=== PATIENT | male | born 1950 | race Caucasian/White ===

== ENCOUNTER → 2017-09-04 08:37 | Outpatient (CLI) | payer OTHER, SELFPAY ==
[2017-09-04 09:34] LABS: Add Manual Diff / Slide Review NO; Basophils Percent Auto 0.2 % (0-2); Eosinophils Percent Auto 4.1 % (2-4); Hematocrit 47.8 % (41-53); Hemoglobin 16.7 g/dL (13.5-17.5); Lymphocytes Percent Auto 15.6 % (25-40); Mean Corpuscular HGB Conc 34.9 % (30-36); Mean Corpuscular Hemoglobin 33.2 PG (26-34); Mean Corpuscular Volume 95.1 fL (80-100); Monocytes Percent Auto 9.1 % (3-14); Neutrophils Absolute Auto 4500 /uL (3000-5900); Platelet Count 234 X10^3/uL (150-400); Red Blood Cell Count 5.03 X10^6/uL (4.5-5.9); Red Cell Distribution Width 12.6 % (11.6-14.8); White Blood Cell Count 6.3 X10^3/uL (4.5-11.0)
[2017-09-04 09:45] LABS: Alanine Aminotransferase 54 IU/L (21-72); Albumin 4.4 g/dL (3.5-5.0); Albumin Globulin Ratio 1.6 (1.0-2.8); Alkaline Phosphatase 57 U/L (38-126); Aspartate Aminotransferase 43 IU/L (17-59); BUN Creatinine Ratio 21.1 (6-22); Bilirubin Total 0.7 mg/dL (0.2-1.3); Blood Urea Nitrogen 19 mg/dL (9-20); Calcium 9.8 mg/dL (8.4-10.2); Carbon Dioxide 28 mmol/L (22-32); Chloride 101 mmol/L (98-107); Estimated Glomerular Filt Rate > 60.0 mL/min (>60); Globulin 2.8 g/dL (1.7-4.1); Glucose 167 mg/dL (80-110); HEMOLYSIS < 15 (0-50); Lipase 152 U/L (23-300); Sodium 143 mmol/L (137-145); Total Protein 7.2 g/dL (6.3-8.2)
== END ==
PROVIDERS: PCP Family Medicine; Visit Provider Physician Assistant
DX: R11.2 Nausea with vomiting, unspecified (principal)
CPT/HCPCS: 36415; 80053; 83690; 85025

== ENCOUNTER 2017-09-11 13:12 | Day surgery (SDC) | payer OTHER, SELFPAY ==
--- NOTE | 2017-09-11 | PATH_ITS ---
[facility] Accession Number: [id number] . 01 Material submitted: . ANTRAL . 01 Clinical history: . A: FOR H. PYLORI . 02 Diagnosis: Antrum, Biopsies: Gastric antral mucosa with mild chronic gastritis. Negative for Helicobacter organisms by immunohistochemistry. Negative for intestinal metaplasia, dysplasia or malignancy. [facility]/09/15/2017 . 02 Electronically signed: . Steven Irwin MD, PhD, Pathologist NPI- [id number] . 01 Gross description: . Received in one formalin-filled container, labeled with the patient's name, labeled antral, are three fragments of roche, soft tissue which range in size from 0.1 x 0.1 x 0.1 cm to 0.3 x 0.2 x 0.2 cm. All fragments are totally submitted in one cassette. ([id number]) /R . 02 Microscopic: . An immunohistochemical stain is performed to evaluate for Helicobacter organisms and is negative. A control stain shows appropriate reactivity. . * This test was developed and its performance characteristics determined by [facility]. It has not been cleared or approved by the U.S. Food and Drug Administration. The FDA has determined that such clearance or approval is not necessary. This test is used for clinical purposes. It should not be regarded as investigational or for research. . 02 Pathologist provided ICD-10: K29.70 . 02 CPT . 979984, C72371 Performed at: 01 [facility] [address] [place] [address], [place], [place] [id number] MD Rebel Otoole MD Phone: [phone] Performed at: 02 [facility] [place] [address] [place], [place] [id number] MD Lawrence Dawson MD Phone: [phone]
[2017-09-11 13:30] VITALS: BP 130/85; PULSE 74; RESP 16; TEMP 36.8; O2SAT 98; BMI 29.4
--- NOTE | 2017-09-11 13:36 | PM.HP.1 ---
History of Present Illness Date Patient Seen: 09/11/17 Time Patient Seen: 13:36 Chief complaint: egd [id number] Narrative: Patient presented with dysphagia. Plan EGD with possible dilatation. Patient History Surgical History Status post knee surgery Status post tonsillectomy and adenoidectomy Family & Social History Family History: Reviewed 09/11/17 by Francisco Velasco MD Meds Home Medications Medication Instructions Recorded Confirmed Type allopurinol 1 tab PO QDAY #30 tab 05/20/17 09/11/17 History aspirin 1 tab PO QDAY #30 tab 05/20/17 09/11/17 History liraglutide [Victoza 2-Ian] 1.8 mg SQ QDAY #10 applic 05/20/17 09/11/17 History naproxen sodium [Aleve] 400 mg PO QDAY #30 tab 05/20/17 09/04/17 History pioglitazone [Actos] 1 tab PO QDAY #30 tab 05/20/17 09/11/17 History thyroid (pork) [Ralston Thyroid] 1 tab PO QDAY #90 tab 07/02/17 09/11/17 Rx vardenafil [Levitra] 5 mg PO Q DAY PRN PRN 09/11/17 History Allergies Allergy/AdvReac Type Severity Reaction Status Date / Time atorvastatin [From LIPITOR] AdvReac Mild muscle pain Verified 09/04/17 08:15 Review of Systems Review of Systems Patient was initially seen and examined in the office on July 30, 2017. That history and physical examination document has not changed since that time. All systems reviewed & are unremarkable except as noted in HPI and below Exam Narrative Exam Narrative: Well-nourished well-developed male in no acute distress. Alert oriented x3. Neck supple Chest clear to auscultation Abdomen soft, nondistended, nontender Extremities show no clubbing or cyanosis Again, examination has not changed since his evaluation of July 30, 2017. Assessment & Plan (1) Dysphagia: Current visit: Yes Status: Acute Plan: Assessment/Plan Narrative: 66-year-old male with dysphagia and longstanding reflux disease. Plan EGD with possible dilatation. Please see the history and physical examination dated July 30, 2017 for further details. Consent was placed on the chart. Proceed today as scheduled.
[2017-09-11] MEDS: SODIUM CHLORIDE 0.9% 1,000 ML 200 ML IV (13:39)
--- NOTE | 2017-09-11 13:39 | P.HP_ITS ---
History of Present Illness Date Patient Seen: 09/11/17 Time Patient Seen: 13:36 Chief complaint: egd [id number] Narrative: Patient presented with dysphagia. Plan EGD with possible dilatation. Patient History Surgical History Status post knee surgery Status post tonsillectomy and adenoidectomy Family & Social History Family History: Reviewed 09/11/17 by Francisco Velasco MD Meds Home Medications Medication Instructions Recorded Confirmed Type allopurinol 1 tab PO QDAY #30 tab 05/20/17 09/11/17 History aspirin 1 tab PO QDAY #30 tab 05/20/17 09/11/17 History liraglutide [Victoza 2-Ian] 1.8 mg SQ QDAY #10 applic 05/20/17 09/11/17 History naproxen sodium [Aleve] 400 mg PO QDAY #30 tab 05/20/17 09/04/17 History pioglitazone [Actos] 1 tab PO QDAY #30 tab 05/20/17 09/11/17 History thyroid (pork) [Sandoval Thyroid] 1 tab PO QDAY #90 tab 07/02/17 09/11/17 Rx vardenafil [Levitra] 5 mg PO Q DAY PRN PRN 09/11/17 History Allergies Allergy/AdvReac Type Severity Reaction Status Date / Time atorvastatin [From LIPITOR] AdvReac Mild muscle pain Verified 09/04/17 08:15 Review of Systems Review of Systems Patient was initially seen and examined in the office on July 30, 2017. That history and physical examination document has not changed since that time. All systems reviewed & are unremarkable except as noted in HPI and below Exam Narrative Exam Narrative: Well-nourished well-developed male in no acute distress. Alert oriented x3. Neck supple Chest clear to auscultation Abdomen soft, nondistended, nontender Extremities show no clubbing or cyanosis Again, examination has not changed since his evaluation of July 30, 2017. Assessment & Plan (1) Dysphagia: Current visit: Yes Status: Acute Plan: Assessment/Plan Narrative: 66-year-old male with dysphagia and longstanding reflux disease. Plan EGD with possible dilatation. Please see the history and physical examination dated July 30, 2017 for further details. Consent was placed on the chart. Proceed today as scheduled.
--- NOTE | 2017-09-11 13:39 | PM.PREOP ---
Pre-operative Note Interval Note Pre-op Check: History & Physical Reviewed by Physician, Exam Performed and History & Physical exam performed today H&P completed within 30 days and has changed as indicated here:: Patient seen examined again today. His history and physical exam have not changed since his previous evaluation dated July 30, 2017. Please see that H&P for further details. However, history physical examination updated again today. We will proceed with EGD and possible dilatation as planned. ASA Class (for procedural sedation): II
[2017-09-11] MEDS: TETRACAINE/BENZOCAINE/BUTAMBEN (CETACAINE) BOTTLE 1 SPRAY TOP (13:50)
[2017-09-11] MEDS: LIDOCAINE 4% SOLN 50 ML 20 ML TOP (13:50)
--- NOTE | 2017-09-11 14:01 | PM.OP.ENDO ---
Operative Date/Time/Diagnoses - Date of procedure: 09/11/17 Time of procedure: 14:01 Pre-op diagnosis: Dysphagia Post-op diagnosis: same Procedure & Clinicians Study performed: 1. Sedation per surgeon 2. Esophagogastroduodenoscopy with cold forceps biopsy Same procedure as scheduled: Yes Indications: 66-year-old diabetic male who presented with dysphagia and nausea. He has longstanding history of reflux disease. EGD with potential dilatation and biopsy was recommended. Surgeon: Francisco Velasco Procedure Notes SCOAP/Timeout: Yes Procedure in detail: After obtaining informed consent, the patient was brought to the GI suite and placed in the left lateral decubitus position on the examination table. After placement of appropriate monitors, the patient was given incremental doses of Versed and Fentanyl until an appropriate level of sedation was achieved. A time out was held per SCOAP protocol. A bite block was gently placed between the patient's teeth. The endoscope was lubricated and then passed into the patient's posterior oropharynx. The esophagus was cannulated under direct vision and the scope was passed to the second portion of the duodenum without difficulty. The scope was then withdrawn with careful examination of all areas of the upper GI tract and mucosa. In the stomach, the instrument was retroflexed and the GE junction examined. The scope was straightened and the procedure continued with examination of the remainder of the upper GI tract. Findings are noted above. Air was aspirated from the stomach and the endoscope gently removed from the esophagus. He had absolutely no evidence of stricture at any level. Gastroesophageal junction was completely normal with Z-line at 42 cm from the incisors. No esophagitis. Therefore dilatation was not performed. The patient was allowed to awaken from sedation without difficulty and taken to the post-anesthesia care unit in good condition. Scope withdrawal time: Not applicable Sedation minutes: 11 Findings: gastritis (Mild gastritis in antrum only) Specimen(s): other (Antral biopsies) Complications: none Recommendations: No ASA/NSAIDS and Continue medication(s) Plan for aftercare: One. Discharged home 2. Follow up in surgery Clinic in 1-2 weeks. May require further evaluation such as esophageal manometry and 24 hr pH probe. Follow up: weeks (1-2 weeks) Disposition: PACU
[2017-09-11] MEDS: fentaNYL 250 MCG/5 ML INJ IV (14:02)
[2017-09-11] MEDS: MIDAZOLAM 5 MG/5 ML VIAL IV (14:03)
[2017-09-11 14:55] VITALS: BP 151/93; PULSE 90; RESP 16; TEMP 36.8; O2SAT 95
--- NOTE | 2017-09-11 15:02 | SUR.PHASEII ---
pt dressed. steady on feet, taking fluids , no co's , ready to go home at 1440
== END 2017-09-11 14:45 | disposition home or self-care (01) ==
PROVIDERS: PCP Family Medicine; Visit Provider Surgery
PROC: 0DJ08ZZ Inspection of Upper Intestinal Tract, Via Natural or Artificial Opening Endoscopic (ICD-10-PCS; CPT 43235; principal; 2017-09-11 15:00)
DX: R13.10 Dysphagia, unspecified (principal); K21.9 Gastro-esophageal reflux disease without esophagitis; E11.9 Type 2 diabetes mellitus without complications; K29.70 Gastritis, unspecified, without bleeding
CPT/HCPCS: 43239; 99152; J2250; J3010

== ENCOUNTER → 2019-10-25 13:20 | Outpatient (CLI) | payer OTHER, SELFPAY ==
--- NOTE | 2019-10-25 | DI.CT.S_ITS ---
PROCEDURE: CT CHEST W CON INDICATIONS: Other disorders of lung TECHNIQUE: After the administration of intravenous contrast, 5 mm thick sections acquired from the pulmonary apices to the posterior costophrenic angles. 1 mm axial lung, 5 mm thick coronal and sagittal reformats and 7 mm axial MIP were acquired. For radiation dose reduction, the following was used: automated exposure control, adjustment of mA and/or kV according to patient size. COMPARISON: [facility], CR, XR CHEST 2 VIEWS, 10/04/2019, 7:41. FINDINGS: Image quality: Excellent. Lungs and pleura: No acute air space opacities. There is a minimal degree of interstitial prominence, and no suspicion for perihilar pneumonitis or fibrosis. The presumed inflammatory process previously reported from plain film imaging 10/04/19 appears to have resolved No pleural effusions or pneumothorax. Central and peripheral airways are patent and normal in caliber. Mediastinum: Heart size is normal. No pericardial effusion. No mediastinal or hilar adenopathy by size criteria. Thoracic aorta and central pulmonary arteries are normal in size. Esophagus is normal in caliber. No hiatal hernia. Bones and chest wall: No suspicious bony lesions. No vertebral body compression fractures. No axillary or supraclavicular adenopathy by size criteria. Thyroid gland appears normal . Abdomen: Visualized upper abdominal solid organs appear normal. Upper abdominal bowel loops are normal in caliber. IMPRESSION: Resolution of the mild medial pneumonitis pattern previously reported from plain film imaging 10/04/19. No adenopathy. No follow-up recommended. Dictated by: Lazaro Lopez M.D. on 10/25/2019 at 15:20 Approved by: Lazaro Lopez M.D. on 10/25/2019 at 15:32
--- NOTE | 2019-10-25 13:34 | DI.ECHO.S_ITS ---
Echocardiogram Report + + :Name: LIZABETH GUTIERREZ Study Date: 10/25/2019 Height: 76 in : :[facility] Weight: 240 lb : : Gender: Male BSA: 2.4 m2 : :: 1950 Age: 68 yrs BP: 152/78 mmHg: :Reason For Study: Ventricular premature depolarization : :Ordering Physician: PERZE, : :VAHID Performed By: Aaliyah Umanzor : :Referring: VAHID TODD : + + Interpretation Summary Sinus tachycardia. Mildly dilated LV; severe global hypokinesis. EF is 20-25%. Moderate LA enlargement; otherwise normal chamber sizes. 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 Calculated EROA is 0.19 cm squared; calculated regurgitant volume is 31 mL. Otherwise no significant valvular abnormalities. No prior study available for comparison. Procedure: A two-dimensional transthoracic echocardiogram with color flow and Doppler was performed. The study quality was technically adequate. There is no prior echocardiogram noted for this patient. The heart rate ranged between 114-124 bpm during the study. The patient had frequent PVCs during the exam. Left Ventricle: There is normal left ventricular wall thickness. The left ventricle is moderately dilated. The estimated left ventricular end diastolic volume is 177 ml. The ejection fraction is estimated to be 20-25%. Diastolic function could not be accurately assessed due to unobtainable data. Right Ventricle: The right ventricle is normal in size and function. Atria: The left atrium is moderately dilated. Right atrial size is normal. There is no Doppler evidence for an interatrial shunt. Mitral Valve: There is mild mitral annular calcification. The mitral valve leaflets are mildly calcified. There is moderate mitral regurgitation. Aortic Valve: The aortic valve is not well visualized. There is no aortic valve stenosis. There is trace aortic regurgitation. Tricuspid Valve: The tricuspid valve is normal in structure and function. There is mild tricuspid regurgitation. Pulmonary artery pressures cannot be estimated because of the lack of a measurable TR jet velocity but the IVC suggests a CVP of around 8 mmHg. Pulmonic Valve: The pulmonic valve is not well seen, but is grossly normal. There is trace pulmonic regurgitation. Great Vessels: The aortic root is normal size. The ascending aorta is normal in size. The IVC is dilated (diameter is greater than 2.1 cm) yet it collapses greater than 50% with a sniff. This suggests a right atrial pressure of 8 mm Hg. Pericardium/ Pleura There is no pericardial effusion. There is no pleural effusion. MMode/2D Measurements & Calculations LVIDd: 5.9 cm LVOT diam: 2.5 cm LVIDs: 5.1 cm Ao root diam: 3.4 cm FS: 14.1 % asc Aorta Diam: 3.2 cm EPSS: 1.4 cm Ao Arch Diam (Prox Trans): 3.2 cm IVSd: 0.97 cm LVPWd: 0.98 cm LV nagel. diameter/BSA (cm/m^2): 2.5 LV sys. diameter/BSA (cm/m^2): 2.1 LA A2 area: 26.7 cm2 RA long axis: 5.7 cm LA A4 area: 30.2 cm2 RA area: 21.1 cm2 LA length (vol): 6.8 cm RA vol: 66.6 ml LA vol: 100.7 ml RA : 27.8 ml/m2 LA vol index: 42.1 ml/m2 IVC diam: 2.1 cm RVD1 (basal): 3.9 cm TAPSE: 2.8 cm Doppler Measurements & Calculations Ao V2 max: 154.0 cm/sec LVOT Max Isaias: 94.4 cm/sec Ao V2 mean: 101.0 cm/sec LV V1 max P.6 mmHg Ao max P.5 mmHg LV V1 VTI: 14.0 cm Ao mean P.8 mmHg CIRA(I,D): 3.1 cm2 Ao V2 VTI: 23.1 cm CIRA(V,D): 3.1 cm2 sev ratio: 0.61 CIRA indexed to BSA (cm^2/m^2): 1.3 Med Peak E' Isaias: 7.7 cm/sec PA V2 max: 63.7 cm/sec Lat Peak E' Isaias: 8.5 cm/sec PA V2 mean: 43.7 cm/sec MR ERO: 0.19 cm2 PA mean P.86 mmHg PA pr(Accel): 35.3 mmHg MR PISA: 2.9 cm2 SV(LVOT): 71.0 ml MR flow rate: 107.6 cm3/sec MR PISA radius: 0.68 cm Electronically signed by: Vahid Todd M.D. on Reading Physician:10/27/2019 01:04 PM
[2019-10-25 13:54] LABS: Alanine Aminotransferase 15 IU/L (<50); Albumin 4.6 g/dL (3.5-5.0); Albumin Globulin Ratio 1.6 (1.0-2.8); Alkaline Phosphatase 43 U/L (38-126); Aspartate Aminotransferase 24 IU/L (17-59); BUN Creatinine Ratio 13.3 (6-22); Blood Urea Nitrogen 16 mg/dL (9-20); Calcium 9.7 mg/dL (8.4-10.2); Carbon Dioxide 28 mmol/L (22-32); Chloride 105 mmol/L (98-107); Estimated Glomerular Filt Rate > 60.0 mL/min (>60); Globulin 2.9 g/dL (1.7-4.1); Glucose 113 mg/dL (80-110); HEMOLYSIS < 15 (0-50); Sodium 140 mmol/L (137-145); Total Protein 7.5 g/dL (6.3-8.2)
== END ==
PROVIDERS: PCP Neuromusculoskeletal Medicine & OMM; Referring Provider Internal Medicine; Visit Provider Internal Medicine
DX: I08.1 Rheumatic disorders of both mitral and tricuspid valves (principal); J98.4 Other disorders of lung; I49.3 Ventricular premature depolarization; R53.83 Other fatigue
CPT/HCPCS: 36415; 71260; 80053; 93306; Q9967

== ENCOUNTER → 2020-01-13 08:40 | Outpatient (CLI) | payer OTHER, SELFPAY ==
[2020-01-13 10:38] LABS: Prostate Specific Antigen 0.327 ng/mL (0.10-4.00)
== END ==
PROVIDERS: PCP Neuromusculoskeletal Medicine & OMM; Referring Provider Specialist; Visit Provider Specialist
DX: N13.8 Other obstructive and reflux uropathy (principal); N40.1 Benign prostatic hyperplasia with lower urinary tract symptoms; Z87.442 Personal history of urinary calculi
CPT/HCPCS: 36415; 81002; 84153

== ENCOUNTER → 2021-03-29 13:38 | Outpatient (CLI) | payer OTHER, SELFPAY ==
[2021-03-29 14:14] LABS: COVID19 -Nasal RAPID Negative (Negative)
== END ==
PROVIDERS: Referring Provider Physician Assistant; Visit Provider Physician Assistant
DX: Z20.822 Contact with and (suspected) exposure to COVID-19 (principal)
CPT/HCPCS: 87635

== ENCOUNTER → 2022-02-08 12:18 | Outpatient (CLI) | payer OTHER, SELFPAY | PROVIDERS: Referring Provider Internal Medicine; Visit Provider Internal Medicine | DX: Z23 Encounter for immunization (principal) | CPT/HCPCS: 90471; 90662 ==

== ENCOUNTER → 2022-04-29 07:36 | Outpatient (CLI) | payer OTHER, SELFPAY ==
--- NOTE | 2022-04-29 | DI.ECHO.S_ITS ---
[facility] +---------+ : : [address] : : : : [id number] : : : : Phone: [phone]+ Echocardiogram Report + + :Name: LIZABETH GUTIERREZ Study Date: 04/29/2022 Height: 67 in : :[facility]: Weight: 245 lb : : Gender: Male BSA: 2.2 m2 : :: 1950 Age: 71 yrs BP: 164/90 mmHg: :Reason For Study: CARDIOMYOPATHY : :Ordering Physician: MADDIE, : :KOFI Clancy Performed By: Aaliyah Umanzor : :Referring: KOFI PERKINS : + + Interpretation Summary Left ventricular ejection fraction is estimated to be 50 +/- 5%. There is borderline global hypokinesis of the left ventricle. Left ventricular systolic function has significantly improved compared to the previous exam. There is mild to moderate mitral regurgitation. There is mild aortic regurgitation. Procedure: A two-dimensional transthoracic echocardiogram with color flow and Doppler was performed. The study quality was technically adequate. Comparison is made with the echocardiogram of 10/25/2019. The patient was in sinus rhythm with heart rates between 68-93 bpm during the exam. Left Ventricle: Proximal septal thickening is noted. The left ventricle is normal in size. Left ventricular ejection fraction is estimated to be 50 +/- 5%. Left ventricular systolic function has significantly improved compared to the previous exam. There is borderline global hypokinesis of the left ventricle. Right Ventricle: The right ventricle is normal in size and function. Atria: The left atrium is mildly dilated. Right atrial size is normal. There is no Doppler evidence for an interatrial shunt. Mitral Valve: The mitral valve is normal in structure and function. There is mild mitral annular calcification. There is mild to moderate mitral regurgitation. The mitral regurgitant jet is eccentrically directed. Aortic Valve: The aortic valve is trileaflet. The aortic valve opens well. There is no aortic valve stenosis. There is mild aortic regurgitation. Tricuspid Valve: The tricuspid valve is normal in structure and function. There is trace tricuspid regurgitation. Pulmonic Valve: The pulmonic valve leaflets are thin and pliable; valve motion is normal. There is mild pulmonic regurgitation. Great Vessels: The aortic root is normal size. The dimensions of the ascending aorta are normal. The IVC is of normal diameter and collapses greater than 50% with a sniff. This suggests a low right atrial pressure of 3 mm Hg. Pericardium/ Pleura There is no pericardial effusion. There is no pleural effusion. MMode/2D Measurements & Calculations LVIDd: 5.1 cm LVOT diam: 2.5 cm LVIDs: 4.1 cm Ao root diam: 3.7 cm FS: 20.6 % asc Aorta Diam: 3.3 cm IVSd: 0.93 cm Ao Arch Diam (Prox Trans): 3.0 cm LVPWd: 1.2 cm LV nagel. diameter/BSA (cm/m^2): 2.3 LV sys. diameter/BSA (cm/m^2): 1.9 LA A2 area: 25.6 cm2 RA long axis: 5.6 cm LA A4 area: 24.0 cm2 RA area: 20.1 cm2 LA length (vol): 6.7 cm RA vol: 61.8 ml LA vol: 78.3 ml RA : 28.0 ml/m2 LA vol index: 35.5 ml/m2 IVC diam: 1.5 cm RVD1 (basal): 3.7 cm RVD2 (mid): 2.8 cm TAPSE: 3.0 cm Doppler Measurements & Calculations Ao V2 max: 138.4 cm/sec LVOT Max Isaias: 80.7 cm/sec Ao V2 mean: 100.6 cm/sec LV V1 max P.6 mmHg Ao max P.7 mmHg LV V1 VTI: 17.7 cm Ao mean P.4 mmHg CIRA(I,D): 2.8 cm2 Ao V2 VTI: 31.0 cm CIRA(V,D): 2.9 cm2 sev ratio: 0.57 CIRA indexed to BSA (cm^2/m^2): 1.3 MV E max isaias: 94.6 cm/sec PA V2 max: 90.7 cm/sec MV A max isaias: 91.6 cm/sec PA V2 mean: 64.2 cm/sec MV E/A: 1.0 PA mean P.8 mmHg Med Peak E' Isaias: 5.8 cm/sec PA pr(Accel): 22.5 mmHg E/E' med: 16.2 Lat Peak E' Isaias: 9.6 cm/sec E/E' lat: 9.9 E/e' average: 13.0 MV dec time: 0.26 sec MR ERO: 0.16 cm2 MR PISA: 2.5 cm2 SV(LVOT): 86.8 ml MR flow rate: 92.4 cm3/sec MR PISA radius: 0.63 cm Reading Physician:02:38 PM
== END ==
PROVIDERS: Referring Provider Internal Medicine; Visit Provider Internal Medicine
DX: I42.9 Cardiomyopathy, unspecified (principal); I08.0 Rheumatic disorders of both mitral and aortic valves
CPT/HCPCS: 93306

== ENCOUNTER 2022-08-30 12:54 | Day surgery (SDC) | payer OTHER, SELFPAY ==
--- NOTE | 2022-08-30 | PATH_ITS ---
[facility] Accession Number: [id number] No. of containers..04 Tissue . 01 Material submitted: . PART A: gastrointestinal site - STOMACH PART B: esophagus, E-G Junction - GE JUNCTION PART C: colon - TRANSVERSE PART D: colon - DESCENDING . 01 Diagnosis: A. Stomach, Biopsy: Body-type mucosa with mild chronic gastritis. Negative for Helicobacter by immunohistochemistry. Negative for intestinal metaplasia. Negative for dysplasia and malignancy. . B. Gastroesophageal Junction, Biopsy: Squamocolumnar junctional mucsoa with mild chronic active inflammation. Negative for intestinal metaplasia by alcian blue stain. Negative for dysplasia and malignancy. . C. Transverse Colon, Biopsies: Tubular adenoma, two fragments. . D. Descending Colon, Biopsies: Tubular adenomas in five of multiple fragments. [facility] 09/09/2022 1237 Local . 01 Electronically signed: . Tammy Ayala MD, Pathologist NPI- [id number] . 01 Gross description: . Part A: STOMACH: Received in formalin are 2 fragment(s) of roche, soft tissue measuring 0.1 x 0.1 x 0.1 cm to 0.3 x 0.3 x 0.2 cm submitted entirely in 1 cassette(s) Part B: GE JUNCTION: Received in formalin are 4 fragment(s) of roche, soft tissue measuring 0.1 x 0.1 x 0.1 cm to 0.3 x 0.2 x 0.1 cm submitted entirely in 1 cassette(s) Part C: TRANSVERSE: Received in formalin are 2 fragment(s) of roche, soft tissue measuring 0.2 x 0.2 x 0.2 cm to 0.3 x 0.3 x 0.3 cm submitted entirely in 1 cassette(s) Part D: DESCENDING: Received in formalin are multiple fragment(s) of roche, soft tissue measuring 0.1 x 0.1 x 0.1 cm to 0.8 x 0.3 x 0.2 cm submitted entirely in 1 cassette(s) /[facility] 09/04/2022 1839 Local . 01 Microscopic: . A. An immunohistochemical stain was performed to evaluate for Helicobacter organisms and is negative. The control stain showed appropriate reactivity. . B. An AB/PAS stain is performed to evaluate for intestinal metaplasia and is negative. The control stain showed appropriate reactivity. . * This test was developed and its performance characteristics determined by [employer]. It has not been cleared or approved by the U.S. Food and Drug Administration. The FDA has determined that such clearance or approval is not necessary. This test is used for clinical purposes. It should not be regarded as investigational or for research. . 01 Pathologist provided ICD-10: D12.3, D12.4 . 01 CPT . 161393, 129019, 922119, 750938, [id number], 695591 Specimen Comment: A courtesy copy of this report has been sent to [phone] Performed at: 01 [facility] [address] [place] [address], [place], [place] [id number] MD Rebel Otoole MD Phone: [phone]
--- NOTE | 2022-08-30 13:27 | P.HP_ITS ---
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 Long history of GERD fairly well controlled on 40 mg of Nexium daily. He has persistent dysphagia present for many years he had a EGD 2017 which demonstrated gastritis but the esophagus was normal without evidence of Marc's esophagus or stricture. Last colonoscopy approximately 10 years ago and normal. Family history of colon cancer in second-degree relative. [facility] Medical History (Updated 08/30/22 @ 13:34 by Reji Dutton MD) Actinic keratosis (2009) ADHD (attention deficit hyperactivity disorder) (1993) Anxiety (~1979) Asthma (~1959) BPH (benign prostatic hyperplasia) (Unknown) BPH w urinary obs/LUTS Calculus of kidney Cataracts, bilateral (2014) Chronic neck pain Chronic right-sided low back pain with right-sided sciatica Chronic thoracic back pain Depression (~1979) Diabetes (2009) Ear lesion (2016) GERD (gastroesophageal reflux disease) (Unknown) Gout (2002) Gout (2002) Hernia (~1977) History of nephrolithiasis Hyperlipemia (Unknown) Hypertension (Unknown) Hypothyroidism (2007) Iliotibial band syndrome, right leg Low testosterone (2007) Lumbar region somatic dysfunction Osteoarthritis Pelvic somatic dysfunction Piriformis syndrome of right side PTSD (post-traumatic stress disorder) (~1979) Sacral region somatic dysfunction Segmental and somatic dysfunction of abdomen and other regions Short leg syndrome, left, acquired Shoulder pain (1975) Somatic dysfunction of lower extremity Thyroid disease Urinary calculi Surgical History Hx of excision of mass (1993) Status post knee surgery Status post tonsillectomy and adenoidectomy Family History Father Cancer Grandfather No problems noted. Grandmother No problems noted. Grandfather Cancer Social History household members: spouse Smoking Status: Never smoker Meds Home Medications and Allergies Home Medications Medication Instructions Recorded Confirmed Type allopurinol 100 mg tablet 1 tab PO QDAY #30 tabs 05/20/17 08/30/22 History aspirin 81 mg tablet,delayed 1 tab PO QDAY #30 tabs 05/20/17 08/30/22 History release liraglutide 0.6 mg/0.1 mL (18 mg/3 1.8 mg SQ QDAY #10 applic 05/20/17 08/30/22 History mL) subcutaneous pen injector (Victoza 2-Ian) naproxen sodium 220 mg tablet 400 mg PO QDAY #30 tabs 05/20/17 08/26/22 History (Aleve) thyroid (pork) 120 mg tablet 120 mg PO QDAY #90 tabs 08/03/18 08/26/22 Rx ([place] Thyroid) coenzyme Q10 200 mg/gram oral 200 mg PO 01/07/20 08/26/22 History powder (H2Q CoQ10) krill oil 500 mg capsule 500 mg PO DAILY 01/07/20 08/30/22 History metoprolol succinate 50 mg capsule 50 mg PO DAILY 01/13/20 08/30/22 History sprinkle, ext. release 24 hr simvastatin 20 mg tablet 20 mg PO DAILY 01/13/20 08/30/22 History tadalafil 5 mg tablet 5 mg PO DAILY #90 tabs 01/13/20 08/30/22 Rx losartan 25 mg tablet 25 mg PO DAILY 03/15/20 08/30/22 History citalopram 20 mg tablet 20 mg PO DAILY 08/26/22 08/30/22 History dapagliflozin 10 mg tablet 10 mg PO DAILY 08/26/22 08/30/22 History (Farxiga) diclofenac sodium 3 % topical gel 1 applic topical 08/26/22 08/26/22 History levothyroxine 200 mcg tablet 200 mcg PO DAILY 08/26/22 08/30/22 History rosuvastatin 40 mg tablet 40 mg PO DAILY 08/26/22 08/30/22 History sacubitril 24 mg-valsartan 26 mg 1 tab PO BID 08/26/22 08/30/22 History tablet (Entresto) testosterone cypionate 200 mg/mL 200 mg IM 08/26/22 08/26/22 History intramuscular oil Allergies Allergy/AdvReac Type Severity Reaction Status Date / Time lisinopril Allergy Verified 08/26/22 15:09 atorvastatin [From LIPITOR] AdvReac Mild muscle pain Verified 08/26/22 15:09 Exam Narrative Exam Narrative: General adult man alert oriented no acute distress Chest nonlabored respirations Extremities warm well perfused Assessment & Plan Assessment and plan (1) Esophageal dysphagia: Status: Acute Assessment & Plan narrative: 71-year-old man with chronic GERD and esophageal dysphagia here for screening colonoscopy and EGD. We discussed the procedures and their associated risks. His questions have been answered he is in agreement with this plan.
[2022-08-30] MEDS: LACTATED RINGERS 1,000 ML 200 ML IV (13:35)
--- NOTE | 2022-08-30 14:31 | PM.OP.EC ---
Operative Date/Time/Diagnoses Date of procedure: 08/30/22 Time of procedure: 14:31 Pre-op diagnosis: Esophageal dysphagia Post-op diagnosis: other (Colonic polypsx 6) Procedure & Clinicians Study performed: Esophagoduodenoscopy Colonoscopy with polypectomy Same procedure as scheduled: Yes Indications: 71-year-old man history of reflux with esophageal dysphagia here for EGD and screening colonoscopy. Surgeon: Reji Dutton Procedure Notes Procedure in detail: The history and physical was performed/updated and the patient is ASA class is 3. The procedure was discussed in detail with the patient. Potential risks complications including infection, bleeding, missed diagnosis, perforation, need for surgery, and were explained. Their questions were answered and informed consent was obtained. Patient placed supine. Time out was performed. Procedural sedation was administered by Anesthesia. A bite block was placed. the scope was inserted into the mouth and advanced through the esophagus and into the stomach. The esophagus was unremarkable without strictures or esophagitis. Stomach was notable for mild gastritis and there was scattered small volume of clot. No distinct gastric ulcer. Biopsies of the stomach were performed with forceps. The pylorus was intubated and the duodenum was normal to the 2nd portion. The scope was retroflexed within the stomach and there was no hiatal hernia. The scope was withdrawn into the esophagus the Z line was seen at 40 cm from the incisions. There was no Marc's esophagitis, a biopsy of the GE junction was performed. Examination began with a thorough inspection of the perianal area there was no evidence of fissures, fistulae, external hemorrhoids or cutaneous malignancy. The colonoscopy scope was then placed into the anal canal and was advanced to the cecum, which was identified by the ileocecal valve, the appendiceal orifice and the confluence of the taenia. The scope was then slowly withdrawn examining colon thoroughly in all directions, irrigating it of any residual stool. Within the transverse colon there were 2 5 mm polyps both removed in their entirety with forceps. Within the descending colon there were 4 polyps ranging between 3 to 5 mm removed in their entirety with combination of forceps and cold snare. The patient tolerated the procedure well. They will be discharged once criteria are met. The prep was of good/excellent quality. The withdrawl time was 15 minutes. Specimen(s): other (Gastric, GE junction, transverse and descending colonic polyps) Impression: Gastritis, colonic polyps x6 Post-procedure Plan for aftercare: Colonoscopy follow-up is dependent on pathology findings Disposition: same day surgery
[2022-08-30 14:37] VITALS: BP 111/71; PULSE 84; RESP 22; TEMP 36.1; O2SAT 97
[2022-08-30 14:42] VITALS: BP 142/90; PULSE 86; RESP 14; TEMP 37.1; O2SAT 96
[2022-08-30 14:45] VITALS: BP 146/92; PULSE 82; RESP 14; TEMP 37; O2SAT 95
[2022-08-30 14:51] VITALS: BP 146/78; PULSE 82; RESP 14; TEMP 37; O2SAT 96
== END 2022-08-30 15:00 | disposition home or self-care (01) ==
PROVIDERS: PCP Family Medicine; Referring Provider Surgery; Visit Provider Surgery
PROC: 0DJD8ZZ Inspection of Lower Intestinal Tract, Via Natural or Artificial Opening Endoscopic (ICD-10-PCS; CPT 45378; principal; 2022-08-30 14:00)
PROC: 0DJ08ZZ Inspection of Upper Intestinal Tract, Via Natural or Artificial Opening Endoscopic (ICD-10-PCS; CPT 43235; 2022-08-30 14:00)
DX: Z12.11 Encounter for screening for malignant neoplasm of colon (principal); R13.19 Other dysphagia; K21.9 Gastro-esophageal reflux disease without esophagitis; K29.50 Unspecified chronic gastritis without bleeding; D12.3 Benign neoplasm of transverse colon; D12.4 Benign neoplasm of descending colon
CPT/HCPCS: 45385; 45380; 43239; J2704

== ENCOUNTER → 2023-03-20 14:00 | Outpatient (CLI) | payer OTHER, SELFPAY | PROVIDERS: PCP Family Medicine; Referring Provider Family Medicine; Visit Provider Family Medicine | DX: Z23 Encounter for immunization (principal) | CPT/HCPCS: 90471; 90662 ==

== ENCOUNTER → 2023-05-14 12:27 | Outpatient (CLI) | payer OTHER, SELFPAY ==
--- NOTE | 2023-05-14 12:29 | DI.RAD.S_ITS ---
PROCEDURE: XR HAND LT MIN 3V INDICATIONS: Severe left thumb CMC pain TECHNIQUE: 3 views of the hand(s) acquired. COMPARISON: [facility], CR, XR FINGER(S) LEFT, 08/11/2020, 11:30. FINDINGS: Bones: No fractures or dislocations. Carpal bones are normally aligned. No suspicious bony lesions. Focal degenerative change can be seen involving the 1st carpometacarpal joint and the radial aspect of the carpus. Fragmented osteophytes can be seen within this region. Milder degenerative changes are seen elsewhere. Soft tissues: No suspicious soft tissue calcifications. IMPRESSION: Focal prominent 1st carpometacarpal joint degenerative change can be seen, which appears mildly more prominent than in 2020. Dictated by: Blayne Tavarez M.D. on 05/14/2023 at 12:39 Approved by: Blayne Tavarez M.D. on 05/14/2023 at 12:40
== END ==
PROVIDERS: PCP Family Medicine; Referring Provider Physical Medicine & Rehabilitation; Visit Provider Physical Medicine & Rehabilitation
DX: M18.12 Unilateral primary osteoarthritis of first carpometacarpal joint, left hand (principal)
CPT/HCPCS: 20604; 73130; 99213; J3301

== ENCOUNTER → 2023-06-02 09:40 | Outpatient (CLI) | payer OTHER, SELFPAY ==
[2023-06-02 11:12] LABS: Add Manual Diff / Slide Review NO; Basophils Absolute Auto 100 /uL (0-100); Basophils Percent Auto 1.1 % (0-2); Eosinophils Absolute Auto 100 /uL (0-450); Eosinophils Percent Auto 1.9 % (2-4); Hematocrit 51.9 % (41-53); Hemoglobin 17.8 g/dL (13.5-17.5); Lymphocytes Absolute Auto 1000 /uL (1100-4500); Lymphocytes Percent Auto 13.8 % (25-40); Mean Corpuscular HGB Conc 34.3 % (30-36); Mean Corpuscular Hemoglobin 33.4 PG (26-34); Mean Corpuscular Volume 97.4 fL (80-100); Monocytes Absolute Auto 500 /uL (0-900); Monocytes Percent Auto 6.5 % (3-14); Neutrophils Absolute Auto 5700 /uL (1500-7000); Neutrophils Percent Auto 76.7 % (50-75); Platelet Count 218 X10^3/uL (150-400); Red Blood Cell Count 5.33 X10^6/uL (4.5-5.9); Red Cell Distribution Width 13.7 % (11.6-14.8); White Blood Cell Count 7.4 X10^3/uL (4.5-11.0)
[2023-06-02 11:19] LABS: Hemoglobin A1C% w Est Avg Glu 7.8 % (4.0-6.0)
[2023-06-02 11:41] LABS: Alanine Aminotransferase 26 IU/L (<50); Albumin 4.1 g/dL (3.5-5.0); Albumin Globulin Ratio 1.5 (1.0-2.8); Alkaline Phosphatase 64 U/L (38-126); Aspartate Aminotransferase 25 IU/L (17-59); BUN Creatinine Ratio 10.4 (6-22); Bilirubin Total 0.9 mg/dL (0.2-1.3); Blood Urea Nitrogen 10 mg/dL (9-20); Calcium 9.4 mg/dL (8.4-10.2); Carbon Dioxide 25 mmol/L (22-32); Chloride 99 mmol/L (98-107); Cholesterol 139 mg/dL (140-199); Estimated Glomerular Filt Rate > 60 mL/min (>60); Globulin 2.8 g/dL (1.7-4.1); Glucose 157 mg/dL (80-110); HDL Cholesterol 55 mg/dL (40-60); HEMOLYSIS < 15 (0-50); LDL Cholesterol Calculated 58 mg/dL (<100); Potassium 4.2 mmol/L (3.4-5.1); Sodium 135 mmol/L (137-145); Total Protein 6.9 g/dL (6.3-8.2); Triglycerides 132 mg/dL (35-150)
[2023-06-02 11:59] LABS: Microalbumi Creatinin Ratio Ur 234.7 ug/mg CR (<30); Microalbumin Urine Random 21.6 mg/dL (0-1.6)
[2023-06-02 12:05] LABS: Prostate Specific Antigen 0.396 ng/mL (0.10-4.00)
[2023-06-02 12:06] LABS: Thyroid Stimulating Hormone 0.434 uIU/mL (0.47-4.68)
[2023-06-13 12:07] LABS: Testosterone,Free 32.9 pg/mL (6.6-18.1)
== END ==
PROVIDERS: PCP Family Medicine; Referring Provider Student in an Organized Health Care Education/Training Program; Visit Provider Student in an Organized Health Care Education/Training Program
DX: E11.22 Type 2 diabetes mellitus with diabetic chronic kidney disease (principal)
CPT/HCPCS: 36415; 80053; 80061; 82043; 82570; 83036; 84153; 84402; 84403; 84439; 84443; 85025

== ENCOUNTER → 2023-07-28 07:57 | Outpatient (CLI) | payer OTHER, SELFPAY ==
--- NOTE | 2023-07-28 | DI.ECHO.S_ITS ---
[place] +---------+ Hospital : : [address] : : [place] : : [id number] : : Phone: [phone] Echocardiogram Report + + :Name: BRENDALIZABETH Snug Study Date: 07/28/2023 Height: 77 in : :[facility] ReadingLocation: Weight: 245 lb : : Gender: Male BSA: 2.4 m2 : :: 1950 Age: 72 yrs BP: 146/92 mmHg: :Reason For Study: CARDIOMYOPATHIES : :Ordering Physician: NEY, : :CARIE Almaraz Performed By: Terry Mayorga : :Referring: CARIE CANTOR : + + Interpretation Summary The ejection fraction is estimated to be 50-55%. Diastolic parameters suggest probable normal left ventricular diastolic function and normal filling pressures. The right ventricle is normal in size and function. There is mild aortic regurgitation. Pulmonary artery pressures cannot be estimated because of the lack of a measurable TR jet velocity but the IVC suggests a CVP of around 3 mmHg. Compared to the prior study dated 04/29/2022, there is a decrease in the mitral regurgitation. Procedure: A two-dimensional transthoracic echocardiogram with color flow and Doppler was performed. The study quality was technically adequate. Comparison is made with the echocardiogram of 04/29/2022. The patient was in normal sinus rhythm during the exam. The heart rate ranged between 77-85 bpm during the study. Left Ventricle: The left ventricle is normal in size. There is borderline concentric left ventricular hypertrophy. The ejection fraction is estimated to be 50-55%. Diastolic parameters suggest probable normal left ventricular diastolic function and normal filling pressures. Right Ventricle: The right ventricle is normal in size and function. Atria: The left atrial size is normal. Right atrial size is normal. The interatrial septum grossly appears intact with no obvious evidence for an atrial septal defect. Mitral Valve: The mitral valve is normal. There is no mitral valve stenosis. There is trace mitral regurgitation. Aortic Valve: The aortic valve is trileaflet. There is no aortic valve stenosis. There is mild aortic regurgitation. Tricuspid Valve: The tricuspid valve is normal in structure and function. There is no tricuspid stenosis. No tricuspid regurgitation. Pulmonary artery pressures cannot be estimated because of the lack of a measurable TR jet velocity but the IVC suggests a CVP of around 3 mmHg. Pulmonic Valve: The pulmonic valve is not well visualized. There is no pulmonic valvular stenosis. There is trace pulmonic regurgitation. Great Vessels: The aortic root is normal size. The dimensions of the ascending aorta are normal. The IVC is of normal diameter and collapses greater than 50% with a sniff. This suggests a low right atrial pressure of 3 mm Hg. Pericardium/ Pleura There is no pericardial effusion. There is no pleural effusion. MMode/2D Measurements & Calculations LVIDd: 5.4 cm LVOT diam: 2.7 cm LVIDs: 3.6 cm Ao root diam: 3.4 cm FS: 32.7 % asc Aorta Diam: 3.2 cm IVSd: 1.1 cm LVPWd: 1.3 cm LV nagel. diameter/BSA (cm/m^2): 2.2 LV sys. diameter/BSA (cm/m^2): 1.5 LA A2 area: 17.4 cm2 RA long axis: 3.9 cm LA A4 area: 21.1 cm2 RA area: 10.8 cm2 LA length (vol): 5.9 cm RA vol: 25.5 ml LA vol: 53.2 ml RA : 10.5 ml/m2 LA vol index: 21.8 ml/m2 RVD1 (basal): 3.3 cm RVD2 (mid): 2.8 cm TAPSE: 2.0 cm Doppler Measurements & Calculations Ao V2 max: 117.3 cm/sec LVOT Max Isaias: 93.8 cm/sec Ao V2 mean: 72.9 cm/sec LV V1 max P.5 mmHg Ao max P.5 mmHg LV V1 VTI: 19.3 cm Ao mean P.5 mmHg CIRA(I,D): 4.9 cm2 Ao V2 VTI: 21.9 cm CIRA(V,D): 4.5 cm2 sev ratio: 0.88 CIRA indexed to BSA (cm^2/m^2): 2.0 MV E max isaias: 50.9 cm/sec PA V2 max: 97.7 cm/sec MV A max isaias: 80.9 cm/sec PA V2 mean: 68.5 cm/sec MV E/A: 0.63 PA mean P.1 mmHg Med Peak E' Isaias: 5.2 cm/sec PA pr(Accel): 43.0 mmHg E/E' med: 9.8 Lat Peak E' Isaias: 6.1 cm/sec E/E' lat: 8.3 E/e' average: 9.0 MV dec time: 0.14 sec [facility] 107.4 ml Reading Physician:04:04 PM
== END ==
PROVIDERS: PCP Family Medicine; Referring Provider Internal Medicine Cardiovascular Disease; Visit Provider Internal Medicine Cardiovascular Disease
DX: I35.1 Nonrheumatic aortic (valve) insufficiency (principal); I42.8 Other cardiomyopathies
CPT/HCPCS: 93306

== ENCOUNTER → 2024-01-13 | Outpatient (CLI) | payer OTHER, SELFPAY | PROVIDERS: PCP Family Medicine; Referring Provider Internal Medicine; Visit Provider Internal Medicine | DX: Z23 Encounter for immunization (principal) | CPT/HCPCS: 90471; 90656 ==

== ENCOUNTER → 2024-07-14 12:48 | Outpatient (CLI) | payer OTHER, SELFPAY ==
--- NOTE | 2024-07-14 12:49 | DI.CT.S_ITS ---
PROCEDURE: CT KIDNEY URETER BLADDER (KUB) INDICATIONS: acute right flank pain TECHNIQUE: Axial sections were acquired from the lung bases to the pubic symphysis. Coronal and sagittal reformats were performed. For radiation dose reduction, the following was used: automated exposure control, adjustment of mA and/or kV according to patient size. COMPARISON: None. FINDINGS: Image quality: Diagnostic. Lower Chest: No significant findings. URINARY: Right Kidney: 2-3 nonobstructing stones are seen scattered in right kidney. No hydronephrosis mild right perinephric fat stranding is seen. Right Ureter: No hydroureter. Left Kidney: 2-3 mm nonobstructing stones are seen. No obstructing stones or hydronephrosis. Nonspecific mild left perinephric fat stranding. Left Ureter: No hydroureter. Bladder: Mild diffuse bladder wall thickening. No calcified bladder stones. No discrete bladder wall mass. ABDOMEN: Liver: No contour-deforming solid mass. Severe hepatic steatosis is seen. Gallbladder: No radiopaque gallstones or wall thickening. Biliary ducts: No biliary dilation. Pancreas: No ductal dilation. Spleen: Size is within normal limits. Adrenal Glands: No definite adrenal nodules. Slight nodular thickening of left adrenal gland is seen. Stomach and Bowel: There is no bowel obstruction. No abnormal bowel wall thickening or mesenteric fat stranding. No evidence of acute appendicitis or diverticulitis. No abscess collection. Peritoneum: No abnormal intraperitoneal fluid. No free air. Ventral Wall: No hernia. Abdominal Nodes: No enlarged retroperitoneal or mesenteric lymph nodes. Vessels: Aorta and inferior vena cava are normal in size. PELVIS: Pelvic Organs: Unremarkable. Pelvic Nodes: Unremarkable. Miscellaneous: No inguinal hernias are seen. Bones: No aggressive appearing bony lesions. Spondylitic changes throughout lower thoracic and lumbar spine is seen. IMPRESSION: 1. Bilateral nonobstructing renal calculi. No obstructing stones or hydronephrosis. No hydroureter. Nonspecific bilateral perinephric fat stranding, low-grade pyelonephritis cannot be excluded, suggest clinical correlation. 2. Mild bladder wall thickening without discrete bladder wall mass or calcified bladder stone. Finding may represent mild cystitis. 3. Severe hepatic steatosis. No discrete hepatic lesion. Hepatomegaly. 4. No bowel obstruction or abnormal bowel wall thickening. No free fluid or free air. Dictated by: Mega Esquivel M.D. on 07/14/2024 at 17:14 Approved by: Mega Esquivel M.D. on 07/14/2024 at 17:20
== END ==
PROVIDERS: PCP Family Medicine; Referring Provider Specialist; Visit Provider Specialist
DX: N20.0 Calculus of kidney (principal); K76.0 Fatty (change of) liver, not elsewhere classified
CPT/HCPCS: 74176

== ENCOUNTER → 2024-11-08 09:00 | Outpatient (CLI) | payer OTHER, SELFPAY ==
--- NOTE | 2024-11-08 09:01 | DI.ECHO.S_ITS ---
[place] +---------+ Hospital : : [address] : : [place] : : [id number] : : Phone: [phone] Echocardiogram Report + + :Name: LIZABETH GUTIERREZ Study Date: 11/08/2024 Height: 77 in : :[facility] ReadingLocation: Weight: 250 lb : : Gender: Male BSA: 2.5 m2 : :: 1950 Age: 74 yrs BP: 150/99 mmHg: :Reason For Study: Cardiomyopathy : :Ordering Physician: NEY, : :CARIE Almaraz Performed By: Zuhair Cancino : :Referring: CARIE BREWSTER : + + Interpretation Summary The patient was in normal sinus rhythm during the exam. The patient had frequent PVCs during the exam. The ejection fraction is estimated to be 45-50%. Diastolic function is indeterminate. The right ventricle is normal in size and function. There is mild mitral regurgitation. There is mild aortic regurgitation. Pulmonary artery pressures cannot be estimated because of the lack of a measurable TR jet velocity but the IVC suggests a CVP of around 3 mmHg. Compared to the prior study 07/28/2023, the left ventricle appears slightly less dynamic. Procedure: A two-dimensional transthoracic echocardiogram with color flow and Doppler was performed. The study quality was technically adequate. Comparison is made with the echocardiogram of 07/28/2023. The patient was in normal sinus rhythm during the exam. The patient had frequent PVCs during the exam. Left Ventricle: The left ventricle is normal in size. Left ventricular wall thickness is mildly increased. The ejection fraction is estimated to be 45- 50%. Diastolic function is indeterminate. Right Ventricle: The right ventricle is normal in size and function. Atria: The left atrial size is normal. Right atrial size is normal. There is no Doppler evidence for an interatrial shunt. Mitral Valve: There is mild to moderate mitral annular calcification. The mitral valve leaflets appear mildly thickened. There is no mitral valve stenosis. There is mild mitral regurgitation. Aortic Valve: Leaflets not well visualized. There is no aortic valve stenosis. There is mild aortic regurgitation. Tricuspid Valve: The tricuspid valve is not well visualized, but is grossly normal. There is trace tricuspid regurgitation. Pulmonary artery pressures cannot be estimated because of the lack of a measurable TR jet velocity but the IVC suggests a CVP of around 3 mmHg. Pulmonic Valve: The pulmonic valve is not well seen, but is grossly normal. There is trace pulmonic regurgitation. Great Vessels: The aortic root is normal size. The ascending aorta is normal in size. The aortic arch could not be visualized. The IVC is of normal diameter and collapses greater than 50% with a sniff. This suggests a low right atrial pressure of 3 mm Hg. Pericardium/ Pleura There is no pericardial effusion. MMode/2D Measurements & Calculations LVIDd: 5.2 cm LVOT diam: 2.4 cm LVIDs: 3.7 cm Ao root diam: 3.4 cm FS: 27.8 % asc Aorta Diam: 3.5 cm IVSd: 1.2 cm LVPWd: 1.2 cm LV nagel. diameter/BSA (cm/m^2): 2.1 LV sys. diameter/BSA (cm/m^2): 1.5 LA A2 area: 22.8 cm2 RA long axis: 5.8 cm LA A4 area: 23.5 cm2 RA area: 20.2 cm2 LA length (vol): 6.1 cm RA vol: 59.6 ml LA vol: 75.1 ml RA : 24.2 ml/m2 LA vol index: 30.6 ml/m2 IVC diam: 1.2 cm RVD1 (basal): 2.9 cm RVD2 (mid): 2.6 cm TAPSE: 3.3 cm Doppler Measurements & Calculations Ao V2 max: 144.4 cm/sec LVOT Max Isaias: 90.4 cm/sec Ao V2 mean: 104.4 cm/sec LV V1 max P.3 mmHg Ao max P.3 mmHg LV V1 VTI: 20.0 cm Ao mean P.8 mmHg CIRA(I,D): 2.7 cm2 Ao V2 VTI: 32.8 cm CIRA(V,D): 2.8 cm2 sev ratio: 0.61 CIRA indexed to BSA (cm^2/m^2): 1.1 AI P1/2t: 709.5 msec AI dec slope: 178.7 cm/sec2 MV E max isaias: 107.6 cm/sec SV(LVOT): 89.0 ml MV A max isaias: 86.3 cm/sec MV E/A: 1.2 Med Peak E' Isaias: 5.5 cm/sec E/E' med: 19.5 Lat Peak E' Isaias: 8.3 cm/sec E/E' lat: 13.0 E/e' average: 16.2 MV dec time: 0.18 sec Reading Physician:09:11 AM
== END ==
LOC: ECHO 09:01
PROVIDERS: PCP Family Medicine; Referring Provider Internal Medicine Cardiovascular Disease; Visit Provider Internal Medicine Cardiovascular Disease
DX: I08.0 Rheumatic disorders of both mitral and aortic valves (principal); I49.3 Ventricular premature depolarization; I42.8 Other cardiomyopathies
CPT/HCPCS: 93306

== ENCOUNTER → 2025-02-02 15:23 | Outpatient (CLI) | payer OTHER, SELFPAY ==
--- NOTE | 2025-02-02 15:27 | DI.RAD.S_ITS ---
PROCEDURE: XR HAND LT 2V
--- NOTE | 2025-02-02 15:27 | DI.RAD.S_ITS ---
PROCEDURE: XR HAND RT 2V
== END ==
LOC: RAD 15:26
PROVIDERS: PCP Family Medicine; Referring Provider Family Medicine; Visit Provider Family Medicine
DX: M18.0 Bilateral primary osteoarthritis of first carpometacarpal joints (principal); M19.032 Primary osteoarthritis, left wrist; M19.031 Primary osteoarthritis, right wrist
CPT/HCPCS: 73120

== ENCOUNTER → 2025-02-17 09:21 | Outpatient (CLI) | payer OTHER, SELFPAY ==
[2025-02-17 10:11] LABS: Add Manual Diff / Slide Review NO; Hematocrit 53.8 % (41-53); Hemoglobin 18.5 g/dL (13.5-17.5); Lymphocytes Absolute Auto 1200 /uL (1100-4500); Mean Corpuscular HGB Conc 34.4 % (30-36); Mean Corpuscular Hemoglobin 33.9 PG (26-34); Mean Corpuscular Volume 98.7 fL (80-100); Platelet Count 235 X10^3/uL (150-400)
[2025-02-17 10:25] LABS: Hemoglobin A1C% w Est Avg Glu 8.9 % (4.0-6.0)
[2025-02-17 10:36] LABS: Alanine Aminotransferase 28 IU/L (<50); Albumin 4.5 g/dL (3.5-5.0); Albumin Globulin Ratio 1.7 (1.0-2.8); Alkaline Phosphatase 64 U/L (38-126); Blood Urea Nitrogen 18 mg/dL (9-20); Calcium 9.4 mg/dL (8.4-10.2); Carbon Dioxide 25 mmol/L (22-32); Chloride 102 mmol/L (98-107); Cholesterol 155 mg/dL (140-199); Estimated Glomerular Filt Rate > 60 mL/min (>60); Globulin 2.7 g/dL (1.7-4.1); Glucose 152 mg/dL (70-99); HDL Cholesterol 54 mg/dL (40-60); HEMOLYSIS < 15 (0-50); Potassium 4.2 mmol/L (3.4-5.1); Sodium 139 mmol/L (137-145); Total Protein 7.2 g/dL (6.3-8.2); Triglycerides 108 mg/dL (35-150); Uric Acid 3.4 mg/dL (3.5-8.5); VLDL Cholesterol Calculated 22 mg/dL (2-30)
[2025-02-17 11:04] LABS: TSH w/ Reflex to FT4 0.76 uIU/mL (0.47-4.68)
[2025-02-17 11:30] LABS: Vitamin D 25 Hydroxy (D3) 27.7 ng/mL (30.0-100.0)
== END ==
PROVIDERS: Obstetrics & Gynecology; PCP Family Medicine; Referring Provider Family Medicine; Visit Provider Family Medicine
DX: Z00.00 Encounter for general adult medical examination without abnormal findings (principal); R79.89 Other specified abnormal findings of blood chemistry; E11.69 Type 2 diabetes mellitus with other specified complication; E78.5 Hyperlipidemia, unspecified; Z12.5 Encounter for screening for malignant neoplasm of prostate; M1A.9XX0 Chronic gout, unspecified, without tophus (tophi); E03.9 Hypothyroidism, unspecified
CPT/HCPCS: 36415; 80053; 80061; 82306; 83036; 84403; 84443; 84550; 85025; G0103